=== PATIENT | female | born 1995 | race African-American/Black ===

== ENCOUNTER 2024-10-12 13:32 | Outpatient (CLI) | payer OTHER | END 2024-10-12 13:33 | disposition home or self-care (01) | LOC: ULT 13:32 | DX: N93.9 Abnormal uterine and vaginal bleeding, unspecified (principal); D39.8 Neoplasm of uncertain behavior of other specified female genital organs; R93.89 Abnormal findings on diagnostic imaging of other specified body structures | CPT/HCPCS: 76856 ==